=== PATIENT | female | born 1945 | race Caucasian/White ===

== ENCOUNTER 2022-05-10 08:59 | Outpatient (CLI) | payer MEDICARE, SELFPAY ==
[2022-05-10 11:04] LABS: Cholesterol* 246 mg/dL (90-199); Triglycerides* 217 mg/dL (40-149)
[2022-05-10 11:05] LABS: HDL Cholesterol* 66 mg/dL (>=50); LDL Cholesterol Calculated 137 mg/dL (<100)
[2022-05-10 11:20] LABS: Vitamin D 25 Hydroxy* 41 ng/mL (30-80)
[2022-05-11 10:42] LABS: Glucose* 95 mg/dL (60-115)
== END 2022-05-10 09:00 | disposition home or self-care (01) ==
PROVIDERS: Visit Provider Internal Medicine
DX: Z00.00 Encounter for general adult medical examination without abnormal findings (principal); M81.0 Age-related osteoporosis without current pathological fracture; D12.6 Benign neoplasm of colon, unspecified; Z13.1 Encounter for screening for diabetes mellitus; Z13.6 Encounter for screening for cardiovascular disorders
CPT/HCPCS: 80061; 82306; 82947

== ENCOUNTER 2022-06-04 08:09 | Outpatient (CLI) | payer MEDICARE, SELFPAY | END 2022-06-04 08:10 | disposition home or self-care (01) | PROVIDERS: PCP Internal Medicine; Visit Provider Surgery | DX: Z12.11 Encounter for screening for malignant neoplasm of colon (principal); K63.5 Polyp of colon; K57.30 Diverticulosis of large intestine without perforation or abscess without bleeding | CPT/HCPCS: 45385; 88305; 99153; J2250; J3010 ==

== ENCOUNTER 2022-07-18 14:27 | Outpatient (CLI) | payer MEDICARE, SELFPAY ==
--- OUTSIDE RECORDS SUMMARY | 2022-07-18 14:30 | XMS_ITS | Clinical Summary ---
:1945 Author Organization [facility] [place] [address] Care Team Providers Name Role Phone Yue Mcmullen MD Primary Care Provider Allergies Active Allergy Reactions Severity Noted Date Comments Chlorthalidone Other - Describe In 09/25/2016 Signif icant hypokalemia and Comment Field hyponatremia w ith small dose of chlorth alidone requiring hospi talization. Penicillins Itching 08/30/2016 Patient was pre viously prescribed peni cillin due to a dental con cern and feet and hand i tching. Medications Medication Sig Dispensed Refills Start Date End Date Status multivitamin (MVI) Take 1 tablet by 0 08/30/2016 Active tablet mouth once daily. polyethylene Drink 3 quarts the 4000 mL 0 05/21/2017 Active glycol-electrolyte day before the (GOLYTELY) procedure day and 1 236-22.74-6.74 -5.86 quart 6 hours gram before the suspensionIndications colonoscopy : Occult blood in appointment stools Active Problems Problem Noted Date Adenomatous colon polyp 05/23/2017 Overview: Colonoscopy 05/2017 2 large polyps repeat in 3 years HTN (hypertension) Resolved Problems Problem Noted Date Resolved Date Occult blood in stools 04/08/2017 05/23/2017 Encounters Date Type Specialty Care Team Description 06/04/2022 Lab Requisition Elizabet Rivas MD from Last 3 Months Immunizations Name Administration Dates Next Due Cholera (Injectable) 09/23/1974, 08/26/1974 HepA-HepB (Twinrix) 05/24/2011, 12/27/2010 Hepatitis B, Unspecified 02/15/2011 Inactivated Polio Vaccine 01/11/1992 Influenza, High-dose Inactivated 07/16/2016, 08/02/2015, Influenza, Inactivated IIV3 (Age 65+ 06/26/2017 Years) Preserv Free Pneumococcal Poly,23-Valent (Pneumovax) 06/26/2017 Pneumococcal, Unspecified 06/01/2011 Smallpox (Vaccinia) Live [id number] 08/26/1974 Tdap 06/01/2011 Typhoid (oral) 12/14/1991 Typhoid, Unspecified 12/27/2010 Zoster (Shingrix-RZV, recombinant) 05/05/2019 Family History Medical History Relation Name Comments Diabetes Maternal Grandmother Cancer-pancreatic Mother Cancer-breast No Family History Relation Name Status Comments Maternal Grandmother Mother Social History Tobacco Use Types Packs/Day Years Used Date Never Smoker Smokeless Tobacco: Never Used Tobacco Cessation: Counseling Given: Yes Alcohol Use Standard Drinks/Week Comments No 0 (1 standard drink = 0.6 oz pure alcoho l) Sex Assigned at Date Recorded Not on file Obstetrics History Para Term AB IAB SAB Ectopic Multiple Living Live Births 3 3 3 Date Outcome GA Total Labor/2nd/3rd Weight Sex Delivery Anes PTL Rosette A 1 A5 Name Clin Labor Term Term Term Last Filed Vital Signs Vital Sign Reading Time Taken Comments Blood Pressure 138/84 01/04/2017 9:16 AM CDT manual Pulse 114 01/04/2017 8:29 AM CDT Temperature 36.6 ??C (97.9 ??F) 08/30/2016 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 Respiratory Rate - - Oxygen Saturation 100% 01/04/2017 8:29 AM CDT Inhaled Oxygen Concentration - - Weight 57.5 kg (126 lb 12.8 oz) 01/04/2017 8:29 AM CDT Height 160 cm (5' 2.99) 01/04/2017 8:29 AM CDT Body Mass Index 22.47 01/04/2017 8:29 AM CDT Plan of Treatment Health Maintenance Due Date Last Done Comments COVID-19 vaccine series (#1) 05/07/1946 Hepatitis C screening for age 0111/07/1963 18-79 DEXA/DXA scan for age 65+ 2009 Depression screening for age 12+ 09/05/2017 09/05/2016 BMI (ht and wt on same day) for 01/04/2018 01/04/2017, 09/13, age 18+ 09/19/2016, Additional history exists Zoster (shingles) series for age 0906/30/2019 05/05/2019 50+ (2 of 2) Tetanus booster 06/01/2021 06/01/2011 Influenza for age 65+ 06/14/2022 06/26/2017, 07/16/2016, 08/02/2015, Additional history exists Tdap Completed 06/01/2011 Pneumococcal series for age 65+ Completed 06/26/2017, 05/14 Procedures Procedure Name Priority Date/Time Associated Diagnosis Comme nts LAB TRACKING EVENT Routine 06/04/2022 9:32 AM CDT PATH TISSUE EXAM Routine 06/04/2022 8:17 AM Resul ts for this CDT procedure are i n the results section. from Last 3 Months Results LAB TRACKING EVENT (06/04/2022 9:32 AM CDT) Specimen Anatomical Collection Method Collection Time Receive d Time (Source) Location / / Volume Laterality Other (Other) Client Collect / 06/04/2022 9:32 AM 05/15 Unknown CDT 10:10 PM CDT Elizabet Rivas MD LAB BILL ONLY Performing Organization Address City/State/ZIP Code Phon e Number [employer] [address] [place] [address] LABORATORY-CENTRAL 2000 LABORATORY PATH TISSUE EXAM (06/04/2022 8:17 AM CDT) Component Value Ref Test Analysis Performed At [facility] gist Range Method Time Signature Case Report Pathology Report ?Case: [id number] ? 06/06/2022 [facility] Authorizing Provider: ??Elizabet Casas MD ??Collected: ? 06/04/2022 0932 ? 11:58 AM HEALTH Ordering Location: ? [facility] ?Received: ?06/05/2022 0817 ? CDT LISSETTE BARBA-Eduarda Pathologist: ? Ludin Mcmillan MD ? ENTRAL Specimens: ?? A) - Hepatic F lexure Biopsy ? LABORATORY ? B) - Sigm oid Polyp ? Final A) COLON, HEPATIC FLEXURE, POLYPECTOMY: 06/06/2022 [facility] Electronically Diagnosis 1. Abundant submucosal adipose tissue compatible with lipoma 11:58 AM HEALTH signed by 2. Overlying colonic mucosa with no diagnostic abnormaliti es CDT LABORATORY-C Ludin Mcmillan MD on B) COLON, SIGMOID, POLYPECTOMY: LABORATORY 06/06/2022 at 1. Tubular adenoma 1 1:58 AM 2. Negative for high grade dysplasia 3. Per the colonoscopy report: ?? a. Polyp size: 9 mm ?? b. Resection: Complete ?? c. Retrieval: Complete Clinical Ms. Ariza is a 76 y.o. undergoing screening colonoscopy. 06/06/2022 [facility] Information 11:58 AM HEALTH Colonoscopy findings: Divert iculosis in the entire colon. Multiple polyps, completely removed. CDT LABORATORY-C ENTRAL LABORATORY Gross A) Received in formalin is a lynch mucosal fragment measuring 5 mm in greatest dimension, which is entirely submitted in one cassette. It is labeled with the patient's name and designated hepatic flexure polyp. 06/06/2022 [facility] Description 11:58 AM HEALTH B) Received in formalin are 2 lynch mucosal fragments measuring 0.3 and 0.8 cm. ??The fragment is inked black and trisected. ??The specimen is entirely submitted in 1 cassette. ??It is labeled with the patient's name and designated sigmoid polyp. CDT LABORATORY-C ENTRAL Kasey Ellison Rosalind 06/05/2022 9:29 AM LABORATORY Microscopic The final 06/06/2022 [facility] Description diagnosis is 11:58 AM HEALTH based on CDT LABORATORY-C microscopic ENTRAL examination of LABORATORY appropriate sections of all specimens. Additional 06/06/2022 [facility] Information Interpreted at [facility], Central Laboratory - [address], [place] [address] 11:58 AM HEALTH CDT LABORATORY-C ENTRAL LABORATORY Specimen Anatomical Collection Method Collection Time Receive d Time (Source) Location / / Volume Laterality Other (Hepatic 06/04/2022 9:32 AM 022 8:17 Flexure Biopsy) CDT AM CDT Specimen 06/04/2022 8:17 AM 8:17 (specimen) CDT AM CDT (Sigmoid Polyp) Elizabet Rivas MD PATHOLOGY/CYTOLOGY Performing Organization Address City/State/ZIP Code Phon e Number [employer] [employer] [address] [place] [address] LABORATORY-CENTRAL 2000 LABORATORY from Last 3 Months Insurance Payer Benefit Plan / Subscriber ID Effective Dates Phone Addre ss Type Group MEDICARE - PB MEDICARE PB [id number] 2015-Present ATTN : CLAIMS USE ONLY ONLY [address] [place] [address] AARP AARP [place] ONLY [id number] 2015-Present [address] [place] [address] Care Teams Director Of Institutional Research Relationship Specialty Start Date End Date Yue Mcmullen MD PCP - General Family Practice 09/05/16
--- NOTE | 2022-07-18 14:40 | CRLHL7_ITS ---
For Patients: As a result of the Century Cures Act, medical imaging exams and procedure reports are released immediately into your electronic medical record. You may view this report before your referring provider. If you have questions, please contact your health care provider. BILATERAL SCREENING MAMMOGRAM WITH COMPUTER-AIDED DETECTION AND TOMOSYNTHESIS TECHNIQUE: CC and MLO views were obtained. These mammographic images have been obtained using full-field digital technique. These mammographic images were interpreted with the benefit of computer-aided detection. Breast Tomosynthesis was used in this interpretation. COMPARISON FILM: 06/26/17. FINDINGS: There are scattered areas of fibroglandular density IMPRESSION: There is no radiographic evidence for malignancy. ASSESSMENT: BI-RADS Category 1: Negative RECOMMENDATION: Routine screening mammogram in 1 year. A lay language report of this examination will be provided to the patient. Israel Scott M.D. Diagnostic Radiologist [email or web address] MIKAYLA/Dictated by: Israel Scott MD @ 07/23/2022 9:18:00 AM (Electronically Signed)
--- NOTE | 2022-07-18 15:00 | CRLHL7_ITS ---
For Patients: As a result of the Cures Act, medical imaging exams and procedure reports are released immediately into your electronic medical record. You may view this report before your referring provider. If you have questions, please contact your health care provider. DXA BONE MINERAL DENSITY STUDY, 07/18/2022 Reason for exam: Age-related osteoporosis without current pathology. Current height (inches): 63.0 Weight (lbs.): 118.0 Menopause age: 44 Ethnicity: White 1. Have you had a previous hip or vertebral fracture? No. 2. Have you had any fractures during your adult life which did not result from significant trauma (e.g., auto accident)? No. 3. Did either of your parents have a hip fracture? No. 4. Do you smoke? No. 5. Have you ever taken Glucocorticoids? No. 6. Do you have rheumatoid arthritis? No. 7. Do you have secondary osteoporosis? No. 8. Do you drink 3 or more alcoholic drinks per day? No. 9. Are you being treated for osteoporosis? No. 10. Have you ever taken any of the following medications: Actonel, Evista, Fosamax, Miacalcin, Reclast, Boniva, Forteo, HRT (i.e., estrogen/hormone therapy), Protelos, Prolia, Vitamin D, Calcium, other ??? please specify. ANSWER: Yes; Fosamax and multivitamins. 11. Do you have any of the following medical conditions: Anorexia or bulimia, asthma or emphysema, end stage renal disease, hyperparathyroidism, any seizure disorders, cancer, inflammatory bowel diseases, hysterectomy, other ??? please specify. ANSWER: No. 12. What was your maximum height (inches)? 64. 13. Do you perform weight bearing exercise regularly? Yes. 14. Do you regularly consume dairy products? Yes. 15. Do you drink caffeinated beverages? Yes. 16. At what age did your period start? 11. 17. Are you premenopausal? No. 18. How many full-term pregnancies have you had? 3. 19. Have you ever missed your period for more than 6 months in a row (not including or menopause)? No. TECHNIQUE: Bone mineral density study was performed using the [employer]. FINDINGS: The results of the study expressed as bone mineral density (BMD) are as follows: Lumbar Spine L1 to L4: BMD: 0.772 g/cm2. T-score: -2.5. Z-score: 0.1. Neck Left: BMD: 0.586 g/cm2. T-score: -2.4. Z-score: -0.2. Right: BMD: 0.594 g/cm2. T-score: -2.3. Z-score: -0.1. Total Left: BMD: 0.644 g/cm2. T-score: -2.4. Z-score: -0.5. Right: BMD: 0.672 g/cm2. T-score: -2.2. Z-score: -0.3. IMPRESSION: Osteoporosis. PEGGY GONZALEZ M.D. Diagnostic/Breast Radiologist [email or web address] Transcribed: 6:[address]/Dictated by: Peggy Goznalez MD @ 07/18/2022 3:37:00 PM (Electronically Signed)
== END 2022-07-18 14:28 | disposition home or self-care (01) ==
LOC: MAMMO 14:29
PROVIDERS: PCP Internal Medicine; Visit Provider Internal Medicine
DX: Z12.31 Encounter for screening mammogram for malignant neoplasm of breast (principal); M81.0 Age-related osteoporosis without current pathological fracture
CPT/HCPCS: 77063; 77067; 77080

== ENCOUNTER 2022-08-18 11:54 | Outpatient (CLI) | payer MEDICARE, SELFPAY ==
--- OUTSIDE RECORDS SUMMARY | 2022-08-24 09:55 | XMS_ITS | Clinical Summary ---
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 [address] LABORATORY-CENTRAL 2000 LABORATORY PATH TISSUE EXAM (06/04/2022 8:17 AM CDT) Component Value Ref Test Analysis Performed At [facility] gist Range Method Time Signature Case Report Pathology Report ?Case: [id number] ? 06/06/2022 [facility] Authorizing Provider: ??Elizabet Casas MD ??Collected: ? 06/04/2022 0932 ? 11:58 AM HEALTH Ordering Location: ? [facility] ?Received: ?06/05/2022 0817 ? CDT [...] - [address], [place] [address] 11:58 AM HEALTH CDT LABORATORY-C ENTRAL LABORATORY Specimen Anatomical Collection Method Collection Time Receive d Time (Source) Location / / Volume Laterality Other (Hepatic 06/04/2022 9:32 AM 022 8:17 Flexure Biopsy) CDT AM CDT Specimen 06/04/2022 8:17 AM 8:17 (specimen) CDT AM CDT (Sigmoid Polyp) Elizabet Rivas MD PATHOLOGY/CYTOLOGY Performing Organization Address City/State/ZIP Code Phon e Number [facility] [address] [place] [address] LABORATORY-CENTRAL 2000 LABORATORY from Last 3 Months Insurance Payer Benefit Plan / Subscriber ID Effective Dates Phone Addre ss Type Group MEDICARE - PB MEDICARE PB [id number] 2015-Present ATTN : CLAIMS USE ONLY ONLY [address] [facility] [address] AARP AARP [place] ONLY [id number] 2015-Present [address] [place] [address] Care Teams Security Business Analyst Relationship Specialty Start Date End Date Yue Mcmullen MD PCP - General Family Practice 09/05/16
== END 2022-08-18 11:55 | disposition home or self-care (01) ==
LOC: NFLDUCREF 08-24 09:52
PROVIDERS: PCP Internal Medicine; Visit Provider Registered Nurse
DX: R35.0 Frequency of micturition (principal)
CPT/HCPCS: 87086; 87186